=== PATIENT | female | born 1965 | race African-American/Black ===

== ENCOUNTER 2016-12-29 03:30 | Observation (INO) | payer MEDICARE, OTHER ==
--- NOTE | ~2016-12-29 | CN ---
Consultation Report [facility] [address] [place]. 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 SOCIAL HISTORY: Lives at the [facility] in [place]. No tobacco. No alcohol. No drugs. FAMILY HISTORY: Positive for diabetes, hypertension, but no renal disease. MEDICATIONS: At home are multiple and include alprazolam, amitriptyline, aspirin, Tessalon, Dulcolax, PhosLo, Tums, Sensipar, Plavix, vitamin B12, Colace, eyedrops, Diflucan, Prozac, folic acid, gabapentin, Mucinex, hydrocodone/APAP, both 70/30 NovoLog and Lantus insulin, lactulose, Claritin, Antivert, Reglan, ProAmatine, Nitrostat, Protonix, MiraLAX, Phenergan, and Senokot, along with Renvela, Zocor, albuterol inhaler, and Ambien. Sent to the emergency room after waking up last night at 9:30 with severe chest pain, was not relieved with aspirin or nitroglycerin. Then about 30 minutes later, it went away after being sent to the emergency room. Initial troponins were 0.8, repeat 4.2. Has had extensive history of atherosclerotic cardiovascular disease, Dr. Cho placed several stents in her coronary arteries. She last dialyzed on Wednesday 12/27, no problems then, no blood pressure problems, no chest pain, and felt well after dialysis. Good appetite, chronic constipation, and lately has had a sore throat with some clear sputum cough. PHYSICAL EXAMINATION: VITAL SIGNS: This morning, blood pressure 91/39 heart rate 87, respirations 17, temperature 98.6. GENERAL: Alert and oriented x3. Cooperative. No acute distress. HEENT: Unremarkable. NECK: Without bruits or jugular venous distention. CHEST: Clear anteriorly. HEART: No murmurs, gallops, or rubs. ABDOMEN: Soft, obese, benign. Bowel sounds are present. EXTREMITIES: Left dmelw-qoo-eagv amputation. Right afyxr-rna-wvcc amputation. NEUROLOGIC: Nonfocal. Oriented x3. Cranial nerves 2-12 intact. Does have decreased sensation in her hands. LABORATORY DATA: Sodium 136, potassium 5.2, chloride 98, CO2 28, BUN of 45, creatinine 8.19, Consultation Report [place] [id number] [facility] [place]. [address] NAME: FRIEDA CASTANON : 63 STATUS : ADM Katt PAT#: [id number] AGE: 51 ADM/REG DATE : 12/29/16 MR#: [id number] REPORT SERV DATE: 12/29/16 DICTATED BY: JULIAN SKY DATE: 12/29/16 REPORT STATUS : Draft TRANSCRIBED BY: ANNABELLE DATE: 12/29/16 blood sugar 308. White count of 5.9, hemoglobin 11, hematocrit 38, and platelet count 219,000 with INR 1.0. Troponin as above 0.8, repeat 4.04. BNP of 4.2, calcium 7.2, magnesium 1.8, phosphorus 6.3. EKG showed initial sinus tachy, later normal sinus rhythm with prolonged QT, and incomplete left bundle-branch block. Chest x-ray shows clear lungs. ASSESSMENT: 1. Recurrent angina, acute myocardial infarction this time non ST segment, multiple stents in the past with Dr. Cho. I have called Dr. Cho. He does not come to [facility]. I have asked [facility] to see the patient and we will start heparin drip. 2. Plan hemodialysis tomorrow 12/30/2016. 3. Diabetes mellitus. I have adjusted her insulin for a little decreased p.o. intake. Plan discussed with Dr. Roman and will go to cath today. SERA/ANNABELLE Julian Sky M.D. / [id number] CC: Royal Billings IV, M.D.
[2016-12-29 02:03] LABS: BASOPHILS 0.3 %; BASOPHILS ABSOLUTE 0.02 10/3/uL (0.0-0.16); EOSINOPHILS 1.3 %; EOSINOPHILS ABSOLUTE 0.08 10/3/uL (0.0-0.53); ER CBC TAT 0 Hrs 03 Mins; HEMATOCRIT 38.4 % (36.0-48.0); HEMOGLOBIN 11.6 g/dL (12.0-16.0); IMMATURE GRANULOCYTES 0.3 %; IMMATURE GRANULOCYTES ABSOLUTE 0.02 10/3/uL (0.0-0.11); LYMPHOCYTES 24.7 %; LYMPHOCYTES ABSOLUTE 1.47 10/3/uL (0.67-4.30); MEAN CORPUS HGB CONC 30.2 g/dL (32.0-36.0); MEAN PLATELET VOLUME 11.3 fL (9.2-13.0); MONOCYTES 7.2 %; MONOCYTES ABSOLUTE 0.43 10/3/uL (0.21-1.20); NEUTROPHILS 66.2 %; NEUTROPHILS ABSOLUTE 3.92 10/3/uL (2.02-8.40); PLATELET COUNT 219 10/3/uL (150-400); RBC DISTRIBUTION WIDTH 19.5 % (12.0-16.0); WHITE BLOOD CELLS 5.9 10/3/uL (4.5-10.5)
[2016-12-29 02:04] LABS: MANUAL DIFF NO %
[2016-12-29 02:11] LABS: INTERNATIONAL NORMAL RATI 1.1 UNITS (-); PARTIAL THROMBO TIME 27.6 SEC (22.5-37.2)
[2016-12-29 02:19] LABS: CALCIUM, SERUM 7.2 MG/DL (8.5-10.4); CHLORIDE, SERUM 97 MMOL/L (96-112); CO2 (CARBON DIOXIDE) 28 MMOL/L (24-34); CREATININE 8.19 MG/DL (0.55-1.02); GFR AFRICAN AMERICAN 6 ML/MIN (>=60); GFR NON AFRICAN AMERICAN 5 ML/MIN (>=60); POTASSIUM, SERUM 5.2 MMOL/L (3.5-5.3); SODIUM, SERUM 136 MMOL/L (135-148)
[2016-12-29 02:20] LABS: BUN (BLOOD UREA NITROGEN) 45 MG/DL (6-23); GLUCOSE, SERUM 308 MG/DL (60-99)
[2016-12-29 02:21] LABS: CHEST PAIN PROFILE TAT 0 Hrs 21 Mins; TROPONIN I 0.87 NG/ML (<0.05)
[~2016-12-29 03:30] MED LIST: AMB10 PO; ASAB PO; CAT2 PO; CAT3 PO; COREG25 PO; DORZOLAMIDE2 % OP; FLEX PO; FOSRENOL PO; HUMALOGPEN SC; L80 PO; LACT30UDL PO; LANTUS SC; LIOR10 PO; LISINOPRIL40 MG PO; LONITEN2.5 PO; LYRICA25 PO; NEPHRO PO; NEXIUM40 PO; PEP20 PO; PEPCID40 MG OR; PHOSLO PO; PLAVIX PO; PR25 PO; PRIN20 PO; PROZAC PO; REG PO; SENSIPAR30 M1 OR; SENTAB PO; STARLIX120 PO; SUCR PO; T PO; VERELAN240 MG PO; VICODINTAB PO; Z100 PO; ZOCOR40 PO; [UNRECOGNIZED DRUG - OTHER] PO
[2016-12-29] MEDS ORDERED: FLUCON1 PO (04:56)
[2016-12-29] MEDS ORDERED: PLAVIX PO (04:57)
[2016-12-29] MEDS ORDERED: MIRALAX POWDER1 PKT PO (04:57)
[2016-12-29] MEDS ORDERED: ZOCOR20 PO (04:57)
[2016-12-29] MEDS ORDERED: RENVELA800 MG PO (04:58)
[2016-12-29] MEDS ORDERED: ASAB PO (04:58)
[2016-12-29] MEDS ORDERED: VITAMIN B-121000 MC1 SL (04:59)
[2016-12-29] MEDS ORDERED: PROZAC PO (04:59)
[2016-12-29] MEDS ORDERED: PROAMAT5 PO (05:00)
[2016-12-29] MEDS ORDERED: FOLIC PO (05:00)
[2016-12-29] MEDS ORDERED: NEUR100 PO (05:00)
[2016-12-29] MEDS ORDERED: REG PO (05:01)
[2016-12-29] MEDS ORDERED: PHOSLO PO (05:01)
[2016-12-29] MEDS ORDERED: MCZ125 PO (05:02)
[2016-12-29] MEDS ORDERED: DSS PO (05:02)
[2016-12-29] MEDS ORDERED: PROTONIX PO (05:02)
[2016-12-29] MEDS ORDERED: SENTAB PO (05:03)
[2016-12-29] MEDS ORDERED: TRUSOPT2 % OPH (05:03)
[2016-12-29] MEDS ORDERED: TUMSROLL PO (05:04)
[2016-12-29] MEDS ORDERED: SENSIPAR30 M1 PO ×2 (05:04→05:05)
[2016-12-29] MEDS ORDERED: AMIT10 PO (05:05)
[2016-12-29] MEDS ORDERED: CLARIT10 PO (05:05)
[2016-12-29] MEDS ORDERED: INSNOV7030 SC ×3 (05:06→05:07)
[2016-12-29] MEDS ORDERED: NOVOLOG SC (05:08)
[2016-12-29] MEDS ORDERED: LANTUS SC (05:09)
[2016-12-29] MEDS ORDERED: CONSTULOSE PO (05:09)
[2016-12-29] MEDS ORDERED: NITROSTAT0.4 MG SL (05:10)
[2016-12-29] MEDS ORDERED: AMB10 PO (05:11)
[2016-12-29] MEDS ORDERED: ALBUTEROL INH (05:13)
[2016-12-29] MEDS ORDERED: PR25 PO (05:13)
[2016-12-29] MEDS ORDERED: X5 PO (05:14)
[2016-12-29] MEDS ORDERED: BIST PO (05:14)
[2016-12-29] MEDS ORDERED: NORCO1 TA1 PO (05:15)
[2016-12-29] MEDS ORDERED: MUCINEX600 MG PO (05:15)
[2016-12-29] MEDS ORDERED: TESSALON200 MG PO (05:17)
[2016-12-29 06:33] LABS: TROPONIN I 4.04 NG/ML (<0.05)
[2016-12-29 11:18] LABS: CHOL/HDL RATIO(NOT ORDER) 5.4 (0-5)
[2016-12-30 06:10] LABS: BASOPHILS 0.1 %; BASOPHILS ABSOLUTE 0.01 10/3/uL (0.0-0.16); EOSINOPHILS 1.8 %; EOSINOPHILS ABSOLUTE 0.12 10/3/uL (0.0-0.53); HEMATOCRIT 36.2 % (36.0-48.0); HEMOGLOBIN 11.1 g/dL (12.0-16.0); IMMATURE GRANULOCYTES 0.4 %; IMMATURE GRANULOCYTES ABSOLUTE 0.03 10/3/uL (0.0-0.11); LYMPHOCYTES 21.7 %; LYMPHOCYTES ABSOLUTE 1.45 10/3/uL (0.67-4.30); MANUAL DIFF NO %; MEAN CORPUS HGB CONC 30.7 g/dL (32.0-36.0); MEAN CORPUSCULAR VOLUME 94.5 fL (80-100); MEAN PLATELET VOLUME 11.2 fL (9.2-13.0); MONOCYTES 6.3 %; MONOCYTES ABSOLUTE 0.42 10/3/uL (0.21-1.20); NEUTROPHILS 69.7 %; NEUTROPHILS ABSOLUTE 4.65 10/3/uL (2.02-8.40); PLATELET COUNT 211 10/3/uL (150-400); RBC DISTRIBUTION WIDTH 19.6 % (12.0-16.0); RED CELL COUNT 3.83 10/6/uL (4.0-5.6); WHITE BLOOD CELLS 6.7 10/3/uL (4.5-10.5)
[2016-12-30 06:30] LABS: CALCIUM, SERUM 7.4 MG/DL (8.5-10.4); CHLORIDE, SERUM 97 MMOL/L (96-112); CHOL/HDL RATIO(NOT ORDER) 5.1 (0-5); CHOLESTEROL 203 MG/DL (< 200); CO2 (CARBON DIOXIDE) 24 MMOL/L (24-34); GLUCOSE, SERUM 247 MG/DL (60-99); HDL CHOLESTEROL 40 MG/DL (> 49); LDL CHOLESTEROL 102 MG/DL (< 130); NON-HDL CHOLESTEROL 163 MG/DL (< 160); POTASSIUM, SERUM 5.7 MMOL/L (3.5-5.3); SGPT(ALT) 31 U/L (5-65); SODIUM, SERUM 132 MMOL/L (135-148); TRIGLYCERIDE 307 MG/DL (< 150)
[2016-12-30 06:31] LABS: BUN (BLOOD UREA NITROGEN) 59 MG/DL (6-23); GFR AFRICAN AMERICAN 4 ML/MIN (>=60); GFR NON AFRICAN AMERICAN 4 ML/MIN (>=60); PHOSPHORUS, SERUM 4.5 MG/DL (2.5-4.5)
[2016-12-30] MEDS ORDERED: LOP25 PO (13:23)
== END 2016-12-30 15:52 | disposition home or self-care (01) ==
LOC: ER 03:30 → ER/OF 03:55 → 2SO 06:37 → SSU1 15:56
PROVIDERS: Internal Medicine Nephrology; Nurse Practitioner Acute Care
DX: I21.4 Non-ST elevation (NSTEMI) myocardial infarction (principal); I25.10 Atherosclerotic heart disease of native coronary artery without angina pectoris; K21.9 Gastro-esophageal reflux disease without esophagitis; I12.0 Hypertensive chronic kidney disease with stage 5 chronic kidney disease or end stage renal disease; E11.22 Type 2 diabetes mellitus with diabetic chronic kidney disease; N18.6 End stage renal disease; Z79.82 Long term (current) use of aspirin; Z79.02 Long term (current) use of antithrombotics/antiplatelets; Z79.899 Other long term (current) drug therapy; Z79.891 Long term (current) use of opiate analgesic; Z79.4 Long term (current) use of insulin; Z98.890 Other specified postprocedural states
CPT/HCPCS: 71010; 80048; 80061; 80069; 82962; 83735; 83880; 84460; 84484; 84703; 85025; 85610; 85730; 93005; 93458; 96374; 96376; 99152; 99153; 99285; A9270-GY; C1725; C1760; C1769; C1874; C9600; G0257; G0378; J0583; J2250; J3010; P9047; Q9967